=== PATIENT | male | born 1965 | race Two or more races ===

== ENCOUNTER 2016-10-20 14:42 | Emergency (ER) | payer OTHER ==
[~2016-10-20] VITALS: Ht 177.8 cm; Wt 74.8 kg
[2016-10-20 14:52] VITALS: BP 146/81
[2016-10-20] MEDS ORDERED: DIPHTH,PERTUSS(ACELL),TET TOX 0.5 ML DISP.SYRIN. VAX IM ONE ×2 (15:15)
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
[2016-10-20] MEDS ORDERED: ACETAMINOPHEN 325 MG TABLET. PO ONE (15:30)
--- NOTE | 2016-10-21 10:46 | RAD ---
Examination: 3 views of the right thumb History: History of injury, discomfort in the thumb Comparison: None available. Findings: The alignment of the first metacarpophalangeal joint, interphalangeal joint grossly appears unremarkable. There is no acute fracture or dislocation identified. Impression: No acute osseous findings.
== END 2016-10-20 16:19 | disposition home or self-care (01) ==
LOC: ER 14:42
DX: S63.601A Unspecified sprain of right thumb, initial encounter (principal); Z88.0 Allergy status to penicillin; X58.XXXA Exposure to other specified factors, initial encounter; Y93.89 Activity, other specified; Y92.89 Other specified places as the place of occurrence of the external cause; Y99.8 Other external cause status
CPT/HCPCS: 29125; 73140; 90471; 90715; 99284-25